=== PATIENT | female | born 1960 | race Caucasian/White ===

== ENCOUNTER 2018-06-05 19:51 | Emergency (ER) | payer OTHER ==
[~2018-06-05] VITALS: Ht 162.6 cm; Wt 56.7 kg
[2018-06-05 19:53] VITALS: BP 178/82
[2018-06-05] MEDS ORDERED: ALPRAZOLAM 0.5 MG TABLET ONE (20:15)
[2018-06-05] MEDS: ALPRAZOLAM 0.5 MG TABLET PO ONE (20:17)
== END 2018-06-05 20:20 ==
LOC: ER 19:52
DX: F41.9 Anxiety disorder, unspecified (principal); G89.29 Other chronic pain; F32.9 Major depressive disorder, single episode, unspecified; G47.00 Insomnia, unspecified
CPT/HCPCS: A4606; Z7610